=== PATIENT | male | born 1965 | race Caucasian/White ===

== ENCOUNTER 2020-04-21 23:54 | Inpatient (IN) | payer OTHER, SELFPAY ==
[2020-04-21 23:55] VITALS: BP 203/112; PULSE 73; RESP 14; TEMP 36.8; O2SAT 97; BMI 34.9
--- NOTE | 2020-04-21 23:56 | ECG_ITS ---
APPROVED REPORT Exam: Resting ECG HR:73 bpm ECG Measurements Heart Rate 73 AXES NH 146 P 45 QRSd 96 QRS 38 QT 370 T 11 QTc 407 Conclusion Normal sinus rhythm Normal ECG Electronically signed by : Kei Espinal, 04/22/2020 09:58:37
[2020-04-22] VITALS (13 sets, daily range): BP systolic 130–149; BP diastolic 73–93; PULSE 60–89; RESP 14–18; TEMP 36.6–37; O2SAT 95–99; BMI 33.9
--- NOTE | 2020-04-22 00:03 | XR_ITS ---
PROCEDURE: XR CHEST 2V CLINICAL HISTORY: cp Chest pain COMPARISON: No exams were available for comparison FINDINGS: The cardiomediastinal silhouette and pulmonary vascularity are within normal limits. The lungs are clear without infiltrates, suspicious nodules, or pleural effusions. There is straightening of the thoracic kyphosis. No acute bony findings IMPRESSION: No acute findings. Dictated by: Ricco Roberts MD 04/22/2020 07:21 Ricco Roberts MD in [facility] 04/22/2020 07:21
--- NOTE | 2020-04-22 00:05 | CT_ITS ---
PROCEDURE: CT ABDOMEN PELVIS W CON CLINICAL INDICATION: epigastric pain COMPARISON: No exams were available for comparison TECHNIQUE: IV Contrast: 75ML Isovue 370 Oral Contrast None Axial images obtained with sagittal and coronal reformats. All CT scans at the facility use one or more dose reduction, viz: automated exposure control, ma/kV adjustment per patient size (including targeted exams where dose is matched to indication, i.e. head), or iterative reconstruction technique. FINDINGS: LOWER THORAX: 6 mm noncalcified nodule left lower lobe. Six-month follow-up suggested. ABDOMEN & PELVIS: Fatty liver. Contracted gallbladder. The spleen and adrenal glands have an unremarkable appearance. There is haziness the fat in the left upper quadrant along the pancreatic tail with thickening of the left anterior pararenal fascia and left pericolic gutter. These findings are suspicious for pancreatitis. Please correlate with appropriate laboratory values. No renal or ureteral calculi. No hydronephrosis. The appendix has an unremarkable appearance. No intestinal obstruction or free air. No evidence diverticulitis. There is some minimal haziness of the peritoneal fat in the left lower quadrant which is nonspecific. There is a tiny umbilical hernia containing fat. Scattered small mesenteric lymph nodes are noted. There is a small right inguinal hernia containing fat IMPRESSION: The findings are compatible with acute pancreatitis along the tail the pancreas. Please correlate with appropriate laboratory values Minimal haziness of the fat in the left lower quadrant nonspecific but could be seen with epiploic appendagitis. Dictated by: Ricco Roberts MD 04/22/2020 08:22 Ricco Roberts MD in [facility] 04/22/2020 08:22
[2020-04-22 00:19] LABS: Basophils # 0.1 K/mm3 (0-0.2); Basophils % 0.6 % (0.1-2.0); Eosinophils # 0.7 K/mm3 (0.0-0.4); Eosinophils % 6.8 % (0.1-12.0); Hematocrit 43.3 % (42.0-52.0); Hemoglobin 13.9 g/dL (14.1-18.0); Lymphocytes # 2.4 K/mm3 (0.7-4.5); Lymphocytes % 23.8 % (10-50); Mean Corpuscular HGB Conc 32.1 g/dL (31.8-35.4); Mean Corpuscular Hemoglobin 28.5 pg (27.0-31.2); Mean Platelet Volume 8.3 fl (7.4-10.4); Monocytes # 0.6 K/mm3 (0.1-1.0); Monocytes % 6.1 % (1.7-9.3); Neutrophils # 6.4 K/mm3 (1.8-7.8); Neutrophils % 62.8 % (37.0-80.0); Platelet Count 342 K/mm3 (142-424); Red Blood Count 4.86 M/mm3 (4.60-6.20); Red Cell Distribution Width 14.7 % (11.5-17.5); White Blood Count 10.2 K/mm3 (4.8-10.8)
--- NOTE | 2020-04-22 00:20 | HMH.EDCP ---
ED Disposition Clinical Impression: Obesity (BMI 30-39.9) Acute pancreatitis Qualifiers: Pancreatitis type: unspecified pancreatitis type Acute pancreatitis complication: no infection or necrosis Qualified Code(s): K85.90 - Acute pancreatitis without necrosis or infection, unspecified Diabetes mellitus Qualifiers: Diabetes mellitus type: type 2 Diabetes mellitus jail insulin use: unspecified adjunct faculty for medical terminology insulin use status Diabetes mellitus complication status: with other specified complication Qualified Code(s): E11.69 - Type 2 diabetes mellitus with other specified complication Disposition: Admitted As Inpatient Condition on Discharge: Fair Referrals: Anand Cao MD [Primary Care Provider] - - Critical Care Critical Care Time: No Attestation: On 04/21/20, the high probability of a clinically significant, sudden or life threatening deterioration of the following system(s) required my full and direct attention, intervention and personal management. The time I documented below is in addition to time spent performing reported procedures but includes the following listed in this critical care notation. Medical Decision Making - Medical Records Medical records reviewed: Yes: I reviewed the patient's medical records. - [place] Inquiry Pt receiving controlled substance: No Vital Signs: 04/21/20 23:55 04/22/20 00:31 04/22/20 01:00 Temperature 98.3 F Temperature Source Oral Pulse Rate [Right] 73 62 66 Respiratory Rate 14 Blood Pressure [Right Arm] 203/112 H 136/75 142/74 H Blood Pressure Mean [Right Arm] 142 95 96 02 Sat by Pulse Oximetry 97 96 95 Oxygen Delivery Method Room Air Room Air 04/22/20 01:30 04/22/20 02:00 Temperature Temperature Source Pulse Rate [Right] 63 64 Respiratory Rate Blood Pressure [Right Arm] 149/93 H 149/93 H Blood Pressure Mean [Right Arm] 111 111 02 Sat by Pulse Oximetry 96 96 Oxygen Delivery Method - Lab Data Lab results reviewed: Yes: I reviewed the patient's lab results. Lab Results 04/22/20 00:07: WBC 10.2, RBC 4.86, Hgb 13.9 L, Hct 43.3, MCV 89.0, MCH 28.5, MCHC 32.1, RDW 14.7, Plt Count 342, MPV 8.3, Neut % (Auto) 62.8, Lymph % (Auto) 23.8, [place] % (Auto) 6.1, Eos % (Auto) 6.8, Baso % (Auto) 0.6, Neut # (Auto) 6.4, Lymph # (Auto) 2.4, [place] # (Auto) 0.6, Eos # (Auto) 0.7 H, Baso # (Auto) 0.1 04/22/20 00:07: Sodium 141, Potassium 4.4, Chloride 106, Carbon Dioxide 24, Anion Gap 15.4 H, BUN 23 H, Creatinine 1.10, Estimated Creat Clear 113, Estimated GFR 70, Est GFR ( Amer) 84, Glucose 224 H, Calcium 9.4, Troponin I < 0.01, Amylase 352 H* 04/22/20 00:07: Lipase 6243 H 04/22/20 00:07: Total Bilirubin 0.3, Direct Bilirubin 0.3, Conjugated Bilirubin 0.0, Indirect Bilirubin 0.0, Unconjugated Bilirubin 0.0, AST 20, ALT 21, Alkaline Phosphatase 80, Total Protein 8.1, Albumin 4.9 04/22/20 00:07: SARS-CoV-2 IgG Ab (Rapid) Negative, SARS-CoV-2 IgM Ab (Rapid) Negative Result diagrams: 04/22/20 00:07 04/22/20 00:07 Orders (Tests/Meds): ED MEDICATIONS Generic Name Dose Route Start Last Admin Trade Name Freq PRN Reason Stop Dose Admin Sodium Chloride 1,000 mls @ 999 mls/hr 04/22/20 00:15 04/22/20 00:14 Sod Chlor 0.9% 1000ml Bag IV 04/22/20 01:15 999 mls/hr .Q1H1M KESHAWN Administration Nitroglycerin 0.4 mg 04/22/20 00:09 04/22/20 00:08 Nitroglycerin 0.4mg Sl Tablet SL 05/22/20 00:08 0.4 mg Q5MINP PRN Administration Chest Pain Sodium Chloride 8 ml 04/22/20 00:01 Sodium Chloride 0.9% 10ml Vial IV 05/22/20 00:00 NEEDED PRN dilute pepcid Sodium Chloride 10 ml 04/22/20 02:07 04/22/20 01:45 Sodium Chloride 0.9% 10ml Syr (Rad Only) IV 05/22/20 02:06 10 ml NEEDED PRN Administration Maintain IV Site Discontinued Medications Generic Name Dose Route Start Last Admin Trade Name Freq PRN Reason Stop Dose Admin Famotidine 20 mg 04/22/20 00:01 04/22/20 00:13 Famotidine 20mg/2ml Vial
[2020-04-22 00:24] LABS: Chloride 106 mmol/L (98-107); Potassium 4.4 mmoL/L (3.5-5.1); Sodium 141 mmol/L (136-145)
[2020-04-22 00:27] LABS: Alanine Aminotransferase 21 U/L (12-78); Albumin Level 4.9 g/dl (3.5-5.0); Alkaline Phosphatase 80 U/L (38-126); Amylase 352 U/L (30-110); Aspartate Amino Transferase 20 U/L (17-59); Bilirubin,Direct 0.3 mg/dl (0.0-0.4); Bilirubin,Total 0.3 mg/dl (0.2-1.3); Blood Urea Nitrogen 23 mg/dl (9-20); Creatinine Clearance Estimated 113 mL/min (50-200); Estimated Glomerular Filt Rate 70 ml/min (>60); GFR (African American) 84 ML/MIN (>60); Total Protein,Serum 8.1 g/dl (6.3-8.2)
[2020-04-22 00:28] LABS: Anion Gap 15.4 mEq/L (5-15); Calcium 9.4 mg/dl (8.4-10.2); Carbon Dioxide 24 mmol/L (22.0-30.0); Glucose 224 mg/dl (74-100)
[2020-04-22 00:40] LABS: Troponin I < 0.01 ng/ml (0.00-0.034)
[2020-04-22 00:46] LABS: Lipase 6243 U/L (23-300)
[2020-04-22 01:00] LABS: Coronavirus 19 IgG Antibody Negative (Negative); Coronavirus 19 IgM Antibody Negative (Negative)
--- NOTE | 2020-04-22 01:32 | PC.NURSE ---
pt is gone to ct
--- NOTE | 2020-04-22 01:54 | PC.NURSE ---
pt returned from ct
--- NOTE | 2020-04-22 02:08 | PC.NURSE ---
Dr Dee speaking with Dr Lemos for admission
--- NOTE | 2020-04-22 03:24 | PC.NURSE ---
patient up to floor via wheelchair.
[2020-04-22 03:43] LABS: Troponin I < 0.01 ng/ml (0.00-0.034)
--- NOTE | 2020-04-22 06:25 | PC.NURSE ---
Pt has rested well since arriving to unit. Has not had any complaints of chest pain or needs for pain medication. Odered AM FSBS to be ran from blood drawn from lab personnel to save pt from having to be stuck again.
--- NOTE | 2020-04-22 06:44 | PC.NURSE ---
Lab personnel at to draw blood
[2020-04-22 07:05] LABS: Basophils % 0.5 % (0.1-2.0); Eosinophils # 0.5 K/mm3 (0.0-0.4); Eosinophils % 5.4 % (0.1-12.0); Hematocrit 38.8 % (42.0-52.0); Hemoglobin 12.6 g/dL (14.1-18.0); Lymphocytes # 1.7 K/mm3 (0.7-4.5); Mean Corpuscular HGB Conc 32.5 g/dL (31.8-35.4); Mean Corpuscular Hemoglobin 29.3 pg (27.0-31.2); Mean Corpuscular Volume 90.4 fl (80-94); Mean Platelet Volume 8.2 fl (7.4-10.4); Monocytes # 0.4 K/mm3 (0.1-1.0); Monocytes % 4.3 % (1.7-9.3); Neutrophils # 6.7 K/mm3 (1.8-7.8); Neutrophils % 71.9 % (37.0-80.0); Platelet Count 298 K/mm3 (142-424); Red Cell Distribution Width 14.6 % (11.5-17.5); White Blood Count 9.4 K/mm3 (4.8-10.8)
[2020-04-22 07:22] LABS: Anion Gap 14.5 mEq/L (5-15); Blood Urea Nitrogen 24 mg/dl (9-20); Calcium 8.8 mg/dl (8.4-10.2); Carbon Dioxide 24 mmol/L (22.0-30.0); Chloride 106 mmol/L (98-107); Chol/HDL Ratio 6.7 (1-3.5); Cholesterol 180 mg/dl (140-200); Creatinine Clearance Estimated 110 mL/min (50-200); Estimated Glomerular Filt Rate 70 ml/min (>60); GFR (African American) 84 ML/MIN (>60); Glucose 224 mg/dl (74-100); HDL Cholesterol 27 mg/dl (40-60); Lipase 1336 U/L (23-300); Magnesium 1.8 mg/dl (1.6-2.3); Potassium 4.5 mmoL/L (3.5-5.1); Sodium 140 mmol/L (136-145)
[2020-04-22 07:26] LABS: Triglycerides 444 mg/dl (30-150)
[2020-04-22 07:32] LABS: Direct LDL Cholesterol 96.79 mg/dL (100-129)
[2020-04-22 07:35] LABS: Troponin I < 0.01 ng/ml (0.00-0.034)
--- NOTE | 2020-04-22 10:18 | HMH.HP ---
*Admission Date: 04/22/20 *Chief complaint: Abdominal pain *History of present illness: Cale is a 55-year-old white male with a history of hypertension, hyperlipidemia, and type 2 diabetes mellitus who started 2 days ago with epigastric pain, gas, and loading. He went to work yesterday but after coming home last night and eating supper his epigastric pain is worse and is radiating into his chest. He tried laying down without no relief and finally presented to the emergency room. There was evaluated in the ER. His cardiac work-up was negative. He was found to have an elevated lipase and CT scan of the abdomen was consistent with pancreatitis. He has been admitted now for further evaluation and treatment. [facility] History Medical History: Reports:: Diabetes Mellitus Type 2, Gastroesophageal Reflux Disease(GERD), Hyperlipidemia, Hypertension Denies:: Cancer, Gall Bladder Disease, MRSA *Have you ever received a pneumonia vaccine?: No *Have you received a flu vaccine this season?: No Other Surgeries: Yes: No Previous Surgery Amputation: No - *Social History Smoking Status: Former smoker # Packs/Day (cigarettes): 0 #Yrs smoked (if former smoker): 15 Alcohol Intake: former Alcohol Intake Frequency:: holidays/special occasions only *Occupational Status:: other Household Members: spouse *Travel in the last 8 weeks: None Family Hx:: Cancer, Coronary Artery Disease, Heart Attack, Hyperlipidemia, Hypertension Review of Systems - Constitutional Denies anorexia, Denies body ache(s), Denies weight gain, Denies weight loss - Eyes Denies change in vision - ENT Denies abnormal hearing, Denies dry mouth, Denies difficulty swallowing - *Cardiovascular Reports chest pain, Denies shortness of breath, Denies irregular heart rhythm - *Respiratory Denies chest congestion, Denies cough - *Gastrointestinal Reports abdominal pain, Reports bloating, Reports heartburn, Denies change in bowel habits, Denies cramping - *Genitourinary Denies difficulty urinating, Denies frequent nighttime urination, Denies urinary incontinence - *Musculoskeletal Reports back pain - Integumentary/Breasts Denies hair loss, Denies yellowing of the skin, Denies unusual bruising - *Neurologic Denies headache(s), Denies seizure-like activity - Psychiatric Reports anxiety, Denies confusion - Endocrine Denies cold intolerance - Hematologic/Lymphatic Denies easy bruising - Allergic/Immunologic Denies itchy eyes, Denies seasonal runny nose Meds Home Medications Medication Instructions Recorded Confirmed Type ALPRAZolam [Xanax 1mg tab] 1 mg PO TID 04/22/20 04/22/20 History Dapagliflozin Propanediol [Farxiga] 5 mg PO DAILY 04/22/20 04/22/20 History Diclofenac Sodium [Diclofenac 75mg 75 mg PO BID 04/22/20 04/22/20 History Tab] Omeprazole [Omeprazole 40mg 40 mg PO DAILY 04/22/20 04/22/20 History Capsule] Rosuvastatin Calcium 10 mg PO HS 04/22/20 04/22/20 History gemfibroziL [Gemfibrozil] 600 mg PO BID 04/22/20 04/22/20 History lisinopriL [Lisinopril 10mg Tab] 10 mg PO DAILY 04/22/20 04/22/20 History Allergies Allergy/AdvReac Type Severity Reaction Status Date / Time No Known Allergies Allergy Verified 04/22/20 00:01 Exam Vital signs and Labs for Last 24 Hours: Temp Pulse Resp BP Pulse Ox 98.4 F 61 18 138/84 98 04/22/20 08:00 04/22/20 08:00 04/22/20 08:00 04/22/20 08:00 04/22/20 08:00 Laboratory Results - last 24 hr 04/22/20 00:07: WBC 10.2, RBC 4.86, Hgb 13.9 L, Hct 43.3, MCV 89.0, MCH 28.5, MCHC 32.1, RDW 14.7, Plt Count 342, MPV 8.3, Neut % (Auto) 62.8, Lymph % (Auto) 23.8, [place] % (Auto) 6.1, Eos % (Auto) 6.8, Baso % (Auto) 0.6, Neut # (Auto) 6.4, Lymph # (Auto) 2.4, [place] # (Auto) 0.6, Eos # (Auto) 0.7 H, Baso # (Auto) 0.1 04/22/20 00:07: Sodium 141, Potassium 4.4, Chloride 106, Carbon Dioxide 24, Anion Gap 15.4 H, BUN 23 H, Creatinine 1.10, Estimated Creat Clear 113, Estimated GFR 70, Est GFR (
[2020-04-22 11:52] LABS: POC Glucose,Bedside 139 (70-110)
--- NOTE | 2020-04-22 11:56 | HMH.PHAINT ---
MEDICATION RECONCILIATION COMPLETED ON PATIENT USING EXTERNAL FILL HISTORY FROM PHARMACY. -ERNESTO HARRY, SHREED
--- NOTE | 2020-04-22 11:57 | HMH.PHAVTE ---
[facility] [place] Pharmacy VTE Monitoring - Patient Demographics Admission date: 04/21/20 Report Date: 04/22/20 Time: 11:57 Allergies/Adverse Reactions: Patient Allergies No Known Allergies Allergy (Verified 04/22/20 00:01) Height: 1.73 m Weight: 101.151 kg Patient Problems: Current Active Problems Acute pancreatitis (Acute) Obesity (BMI 30-39.9) (Acute) Diabetes mellitus (Acute) Hypertriglyceridemia (Acute) Hypertension (Acute) GERD (gastroesophageal reflux disease) (Acute) - VTE Risk Labs: VTE Related Lab Results Hgb 12.6 g/dL (14.1-18.0) L 04/22/20 06:12 Hct 38.8 % (42.0-52.0) L 04/22/20 06:12 Plt Count 298 K/mm3 (142-424) 04/22/20 06:12 BUN 24 mg/dl (9-20) H 04/22/20 06:12 Creatinine 1.10 mg/dl (0.66-1.25) 04/22/20 06:12 Estimated Creat Clear 110 mL/min (50-200) 04/22/20 06:12 VTE Risk Level: Low Risk - Prophylaxis VTE Prophylaxis Ordered?: Yes Types of VTE Prophylaxis: TEDS Knee High Location of Applied Device: Bilateral Lower Extremeties
[2020-04-22 17:29] LABS: POC Glucose,Bedside 113 (70-110)
--- NOTE | 2020-04-22 17:50 | PC.NURSE ---
Pt has been pleasant and cooperative this shift. A&O X4. No complaints of pain. Lungs CTA. No edema noted. Skin is C/D/I. Abdomen is large, round, soft, and tender. Pt denies N/V/D. Pt is NPO status. Pt ambulates to/from the bathroom and throughout the room independently. FSBS results have been 139 and 113 this shift, neither of which have required insulin coverage per sliding scale. 18 G peripheral IV in the RT AC is patent and infusing NS @ 125 ML/HR. VSS. Call light within reach. Will continue to monitor.
[2020-04-22 21:12] LABS: POC Glucose,Bedside 108 (70-110)
[2020-04-23] VITALS (7 sets, daily range): BP systolic 124–150; BP diastolic 57–74; PULSE 65–94; RESP 17–20; TEMP 36.8–37.7; O2SAT 95–99; BMI 33.6
[2020-04-23 01:02] LABS: POC Glucose,Bedside 118 (70-110)
--- NOTE | 2020-04-23 04:48 | PC.NURSE ---
A&O x 4, VSS, able to change positions while lying in bed and ambulate to bathroom independently, skin warm, dry. IV 18g RAC c/d/i, NS 125ml/hr. Denies SOA, BL clear throughout. Pain scal 7/10 but refused pain medication. BS WNL no insulin required. Will continue to monitor.
[2020-04-23 05:24] LABS: POC Glucose,Bedside 123 (70-110)
[2020-04-23 07:47] LABS: Alanine Aminotransferase 15 U/L (12-78); Albumin Level 4.3 g/dl (3.5-5.0); Albumin/Globulin Ratio 1.4 (1.1-1.8); Alkaline Phosphatase 68 U/L (38-126); Amylase 72 U/L (30-110); Aspartate Amino Transferase 18 U/L (17-59); Bilirubin,Total 0.6 mg/dl (0.2-1.3); Blood Urea Nitrogen 13 mg/dl (9-20); Calcium 9.1 mg/dl (8.4-10.2); Carbon Dioxide 24 mmol/L (22.0-30.0); Chloride 104 mmol/L (98-107); Creatinine Clearance Estimated 134 mL/min (50-200); Estimated Glomerular Filt Rate 88 ml/min (>60); GFR (African American) 106 ML/MIN (>60); Globulin 3.1 g/dL (1.3-3.2); Glucose 134 mg/dl (74-100); Lipase 173 U/L (23-300); Sodium 139 mmol/L (136-145); Total Protein,Serum 7.4 g/dl (6.3-8.2)
--- NOTE | 2020-04-23 08:12 | P.PN_ITS ---
Internal Medicine - PN: Subj *Date: 04/23/20 *Time: 08:30 Interval history: He continues to complain of pain in the epigastric area radiating around to the left flank. No nausea or vomiting. He feels a little hungry. Exam Vital signs and Labs for Last 24 Hours: Temp Pulse Resp BP Pulse Ox 98.2 F 82 20 137/74 97 04/23/20 04:00 04/23/20 04:00 04/23/20 04:00 04/23/20 04:00 04/23/20 04:00 Laboratory Results - last 24 hr 04/22/20 11:43: POC Glucose 139 H 04/22/20 17:20: POC Glucose 113 H 04/22/20 21:03: POC Glucose 108 04/22/20 23:45: POC Glucose 118 H 04/23/20 05:14: POC Glucose 123 H 04/23/20 06:58: Sodium 139, Potassium 4.0, Chloride 104, Carbon Dioxide 24, Anion Gap 15.0, BUN 13 D, Creatinine 0.90, Estimated Creat Clear 134, Estimated GFR 88, Est GFR ( Amer) 106 D, Glucose 134 H, Calcium 9.1, Total Bilirubin 0.6, AST 18, ALT 15 D, Alkaline Phosphatase 68, Total Protein 7.4, Albumin 4.3 D, Globulin 3.1, Albumin/Globulin Ratio 1.4, Amylase 72, Lipase 173 I & O for Last 24 hours: Intake & Output 04/20/20 04/21/20 04/22/20 04/23/20 11:59 11:59 11:59 11:59 Intake Total 1000 / 1000 2800 / 2800 Balance 1000 / 1000 2800 / 2800 Weight 223 lb 222 lb Narrative: He appears mildly uncomfortable but no acute distress. Lungs are clear. Heart is regular. Abdomen is soft and slightly distended. Moderate epigastric and left upper quadrant tenderness. No rebound or guarding. Bowel sounds are diminished. Assessment and Plan (1) Acute pancreatitis Status: Acute Qualifiers: Pancreatitis type: unspecified pancreatitis type Acute pancreatitis complication: no infection or necrosis Qualified Code(s): K85.90 - Acute pancreatitis without necrosis or infection, unspecified Category: Medical Code(s): K85.90 - Acute pancreatitis without necrosis or infection, unspecified (2) Hypertriglyceridemia Status: Acute Category: Medical Code(s): E78.1 - Pure hyperglyceridemia (3) Hypertension Status: Acute Category: Medical Code(s): I10 - Essential (primary) hypertension (4) GERD (gastroesophageal reflux disease) Status: Acute Category: Medical Code(s): K21.9 - Gastro-esophageal reflux disease without esophagitis (5) Diabetes mellitus Status: Acute Qualifiers: Diabetes mellitus type: type 2 Diabetes mellitus senior living insulin use: unspecified senior living insulin use status Diabetes mellitus complication status: with other specified complication Qualified Code(s): E11.69 - Type 2 diabetes mellitus with other specified complication Category: Medical Code(s): E11.9 - Type 2 diabetes mellitus without complications - Assessment and plan all Dx Assessment and Plan for all problems:: Pancreatic enzymes are normal but still having a fair amount of pain. Advance to full liquid diet as tolerated today. Plan for gallbladder ultrasound tomorrow.
[2020-04-23 12:36] LABS: POC Glucose,Bedside 99 (70-110)
[2020-04-23 17:16] LABS: POC Glucose,Bedside 107 (70-110)
--- NOTE | 2020-04-23 18:01 | PC.NURSE ---
Pt has been pleasant and cooperative this shift. A&O X4. No complaints of pain. Lungs CTA. No edema noted. Skin is C/D/I. Abdomen is large, round, soft, and non-tender. Pt denies N/V/D. Pt has tolerated full liquids well thus far. Pt ambulates to/from the bathroom and throughout the room independently. FSBS results have been 99 and 107 this shift, neither of which have required insulin coverage per sliding scale. 18 G peripheral IV in the RT AC is patent and infusing NS @ 125 ML/HR. VSS. Call light within reach. Will continue to monitor.
[2020-04-23 21:11] LABS: POC Glucose,Bedside 119 (70-110)
[2020-04-24] VITALS: BP 144/72; PULSE 79; PULSE 80; RESP 18; TEMP 37; O2SAT 95
[2020-04-24 04:00] VITALS: BP 135/79; PULSE 80; PULSE 85; RESP 16; TEMP 37.4; O2SAT 94
[2020-04-24 05:46] VITALS: BMI 33.3
--- NOTE | 2020-04-24 05:50 | PC.NURSE ---
pt is AxOx4, lungs CTA, remains on room air with sats 94-95%, no complaints of SOA or chest pain, abdomen is large, round, soft and tender, ambulating to bathroom and in room independently
[2020-04-24 07:04] LABS: POC Glucose,Bedside 100 (70-110)
[2020-04-24 08:00] VITALS: BP 148/86; PULSE 85; PULSE 90; RESP 16; TEMP 37.1; O2SAT 97
--- NOTE | 2020-04-24 08:11 | US_ITS ---
PROCEDURE: US GALLBLADDER CLINICAL INDICATION: pancreatitis COMPARISON: No exams were available for comparison FINDINGS: Pancreas: Pancreas is not well delineated due to overlying bowel gas. Heterogeneous echogenicity is present in the pancreas with poor visualization of the pancreatic tail. Liver: Diffuse increased echogenicity of the liver with poor through transmission of sound consistent with hepatic steatosis. No focal liver lesion demonstrated. There is appropriate direction of blood flow within non dilated portal vein.. Right kidney: Unremarkable appearing. No hydronephrosis. Gallbladder: No stones are evident. There is no gallbladder wall thickening. Common duct is normal in diameter. IMPRESSION: Fatty liver. Poor visualization of the tail the pancreas with heterogeneous echogenicity. No gallstones apparent. Dictated by: Ricco Roberts MD 04/24/2020 19:02 Ricco Roberts MD in [facility] 04/24/2020 19:02
[2020-04-24 09:35] LABS: Basophils % 0.2 % (0.1-2.0); Eosinophils # 0.4 K/mm3 (0.0-0.4); Eosinophils % 4.1 % (0.1-12.0); Hematocrit 38.5 % (42.0-52.0); Hemoglobin 12.7 g/dL (14.1-18.0); Lymphocytes # 1.2 K/mm3 (0.7-4.5); Lymphocytes % 12.4 % (10-50); Mean Corpuscular HGB Conc 32.9 g/dL (31.8-35.4); Mean Corpuscular Hemoglobin 29.2 pg (27.0-31.2); Mean Corpuscular Volume 88.8 fl (80-94); Mean Platelet Volume 8.4 fl (7.4-10.4); Monocytes # 0.5 K/mm3 (0.1-1.0); Neutrophils # 7.9 K/mm3 (1.8-7.8); Neutrophils % 78.4 % (37.0-80.0); Platelet Count 314 K/mm3 (142-424); Red Blood Count 4.34 M/mm3 (4.60-6.20); Red Cell Distribution Width 14.4 % (11.5-17.5)
[2020-04-24 09:53] LABS: Anion Gap 12.9 mEq/L (5-15); Blood Urea Nitrogen 12 mg/dl (9-20); Calcium 9.3 mg/dl (8.4-10.2); Carbon Dioxide 24 mmol/L (22.0-30.0); Chloride 102 mmol/L (98-107); Creatinine Clearance Estimated 132 mL/min (50-200); Estimated Glomerular Filt Rate 88 ml/min (>60); GFR (African American) 106 ML/MIN (>60); Glucose 215 mg/dl (74-100); Lipase 67 U/L (23-300); Potassium 3.9 mmoL/L (3.5-5.1); Sodium 135 mmol/L (136-145)
[2020-04-24 12:00] VITALS: BP 142/76; PULSE 80; PULSE 81; RESP 19; TEMP 37.2; O2SAT 96
[2020-04-24 12:56] LABS: POC Glucose,Bedside 113 (70-110)
--- NOTE | 2020-04-24 13:19 | P.PN_ITS ---
Internal Medicine - PN: Subj *Date: 04/24/20 *Time: 08:15 Interval history: He rested fairly well last night. Still having some epigastric and left upper quadrant abdominal pain radiating to the left flank but overall better. He is tolerating a full liquid diet. He had a good bowel movement. Exam Vital signs and Labs for Last 24 Hours: Temp Pulse Resp BP Pulse Ox 98.8 F 80 16 148/86 H 97 04/24/20 08:00 04/24/20 12:00 04/24/20 08:00 04/24/20 08:00 04/24/20 08:00 Laboratory Results - last 24 hr 04/23/20 17:05: POC Glucose 107 04/23/20 20:43: POC Glucose 119 H 04/24/20 06:35: POC Glucose 100 04/24/20 09:25: WBC 10.0, RBC 4.34 L, Hgb 12.7 L, Hct 38.5 L, MCV 88.8, MCH 2 9.2, MCHC 32.9, RDW 14.4, Plt Count 314, MPV 8.4, Neut % (Auto) 78.4, Lymph % (Auto) 12.4, [place] % (Auto) 5.0, Eos % (Auto) 4.1, Baso % (Auto) 0.2, Neut # (Auto) 7.9 H, Lymph # (Auto) 1.2, [place] # (Auto) 0.5, Eos # (Auto) 0.4, Baso # (Auto) 0.0 04/24/20 09:25: Sodium 135 L, Potassium 3.9, Chloride 102, Carbon Dioxide 24, Anion Gap 12.9, BUN 12, Creatinine 0.90, Estimated Creat Clear 132, Estimated GFR 88, Est GFR ( Amer) 106, Glucose 215 H, Calcium 9.3, Lipase 67 04/24/20 11:36: POC Glucose 113 H I & O for Last 24 hours: Intake & Output 04/22/20 04/23/20 04/24/20 04/25/20 11:59 11:59 11:59 11:59 Intake Total 1000 / 1000 2800 / 2800 3820 / 3820 Balance 1000 / 1000 2800 / 2800 3820 / 3820 Weight 223 lb 222 lb 220 lb Narrative: He appears in no distress. Lungs are clear. Heart is regular. Abdomen is soft and nondistended. Mild to moderate epigastric and left upper quadrant tenderness. No rebound or guarding. Bowel sounds are present.. Assessment and Plan (1) Acute pancreatitis Status: Acute Qualifiers: Pancreatitis type: unspecified pancreatitis type Acute pancreatitis compli cation: no infection or necrosis Qualified Code(s): K85.90 - Acute pancreatitis without necrosis or infection, unspecified Category: Medical Code(s): K85.90 - Acute pancreatitis without necrosis or infection, unspecified (2) Hypertriglyceridemia Status: Acute Category: Medical Code(s): E78.1 - Pure hyperglyceridemia (3) Hypertension Status: Acute Category: Medical Code(s): I10 - Essential (primary) hypertension (4) GERD (gastroesophageal reflux disease) Status: Acute Category: Medical Code(s): K21.9 - Gastro-esophageal reflux disease without esophagitis (5) Diabetes mellitus Status: Acute Qualifiers: Diabetes mellitus type: type 2 Diabetes mellitus distribution center associate insulin use: unspecified distribution center associate insulin use status Diabetes mellitus complication status: with other specified complication Qualified Code(s): E11.69 - Type 2 diabetes mellitus with other specified complication Category: Medical Code(s): E11.9 - Type 2 diabetes mellitus without complications - Assessment and plan all Dx Assessment and Plan for all problems:: A.m. labs are pending. He is scheduled for gallbladder ultrasound this morning. Advance diet after ultrasound completed
[2020-04-24 14:42] VITALS: BMI 33.4
[2020-04-24 16:00] VITALS: BP 147/55; PULSE 85; RESP 22; TEMP 38.1; O2SAT 97
[2020-04-24 22:03] LABS: POC Glucose,Bedside 131 (70-110)
--- NOTE | 2020-04-25 15:02 | HMH.DCSUM ---
General - General Admission date:: 04/22/20 <Anand Cao - 05/16/20 12:42> 04/22/20 <NikiaBerta - 04/25/20 15:05> Discharge date: 04/24/20 <Berta Montejo - 04/25/20 15:05> HPI HPI: Cale is a 55-year-old white male with a history of hypertension, hyperlipidemia, and type 2 diabetes mellitus who started 2 days ago with epigastric pain, gas, and loading. He went to work yesterday but after coming home last night and eating supper his epigastric pain is worse and is radiating into his chest. He tried laying down without no relief and finally presented to the emergency room. There was evaluated in the ER. His cardiac work-up was negative. He was found to have an elevated lipase and CT scan of the abdomen was consistent with pancreatitis. He has been admitted now for further evaluation and treatment. <LucBerta dick - 04/25/20 15:05> Hospital Course Hospital Course: The patient was admitted with a diagnosis of acute pancreatitis likely on the basis of diabetes and hypertriglyceridemia. On his CT scan, his gallbladder was contracted with no evidence of stones. His pain did improve as did his lipase. He was kept n.p.o. with IV fluid hydration and was started on sliding scale insulin. A gallbladder ultrasound was ordered and showed fatty liver but no gallstones. His pancreatic enzymes normalized, but he continued to have some pain. His diet was advanced. He was tolerating his diet and was having good bowel movements. He tolerated a low-fat diet with no nausea or increased pain and was anxious to go home. He was instructed on a strict low-fat diet and will monitor his blood sugar at home and resume his diabetic medications when his sugars start increasing. He will follow-up in the office [facility] in 1 week. <NikiaBooa - 04/25/20 15:05> Objective Vital signs: Temp Pulse Resp BP Pulse Ox 100.5 F H 85 22 147/55 H 97 04/24/20 16:00 04/24/20 16:00 04/24/20 16:00 04/24/20 16:00 04/24/20 16:00 <Anand Cao - 05/16/20 12:42> Temp Pulse Resp BP Pulse Ox 100.5 F H 85 22 147/55 H 97 04/24/20 16:00 04/24/20 16:00 04/24/20 16:00 04/24/20 16:00 04/24/20 16:00 <Berta Montejo 04/25/20 15:05> Narrative: He appears in no distress. Lungs are clear. Heart is regular. Abdomen is soft and nondistended. Mild to moderate epigastric and left upper quadrant tenderness. No rebound or guarding. Bowel sounds are present.. <Berta Montejo 04/25/20 15:05> Results Labs on day of discharge: Labs from last 24 hours 04/24/20 16:42 POC Glucose 131 H <Berta Mnotejo 04/25/20 15:05> DS: Diagnosis - Discharge Diagnosis (1) Acute pancreatitis Status: Acute (2) Hypertriglyceridemia Status: Acute (3) Hypertension Status: Acute (4) GERD (gastroesophageal reflux disease) Status: Acute (5) Diabetes mellitus Status: Acute <Berta Montejo 04/25/20 15:02> (1) Acute pancreatitis Status: Acute (2) Hypertriglyceridemia Status: Acute (3) Hypertension Status: Acute (4) GERD (gastroesophageal reflux disease) Status: Acute (5) Diabetes mellitus Status: Acute <Anand Cao - 05/16/20 12:42> Discharge Plan - Patient Discharge Instructions ACTIVITY: Continue current activity <Berta Montejo 04/25/20 15:05> DIET: diabetic diet, low fat, low cholesterol <Berta Montejo 04/25/20 15:05> Additional Instructions: Nursing Diagnosis: Knowledge Deficit Disease/Condition Goal(s): Education of disease process Instruction(s): Follow provider plan/instructions (See attached discharge education) Follow/up with primary care provider as instructed in discharge packet <Aannd Cao - 05/16/20 12:42> Patient Instructions: Acute Pancreatitis, Carbohydrate-Counting Diet, Fat-Restricted Diet <Anand Cao - 05/16/20 12:42> F
== END 2020-04-24 18:39 | disposition home or self-care (01) | DRG 440 ==
LOC: ER 04-22 02:50 → 2ND 04-22 03:04
PROVIDERS: Admitting Provider Family Medicine; Emergency Provider Emergency Medicine; PCP Family Medicine; Visit Provider Family Medicine
DX: K85.90 Acute pancreatitis without necrosis or infection, unspecified (principal); E11.9 Type 2 diabetes mellitus without complications; I10 Essential (primary) hypertension; Z87.891 Personal history of nicotine dependence; E78.1 Pure hyperglyceridemia; Z79.84 Long term (current) use of oral hypoglycemic drugs; Z79.899 Other long term (current) drug therapy
CPT/HCPCS: 36415; 71046; 74177; 76705; 80048; 80053; 80061; 80076; 82150; 82962; 83690; 83735; 84484; 85025; 86328; 93005; 96375; 99284; J2405; Q9967

== ENCOUNTER → 2021-03-14 07:44 | Outpatient (CLI) | payer OTHER, SELFPAY | PROVIDERS: PCP Family Medicine; Visit Provider Family Medicine | DX: R06.09 Other forms of dyspnea (principal) | CPT/HCPCS: 93017 ==

== ENCOUNTER → 2021-03-14 07:44 | Outpatient (CLI) | payer SELFPAY ==
--- NOTE | 2021-03-14 | CA_ITS ---
APPROVED REPORT Exam: Exercise Treadmill Technologist: Roma Brooks Ht: 5 ft 8 in Wt: 225 lbs BSA: 2.15 m2 HR: 65 bpm BP: 128/76 mmHg Indications: Dyspnea on Exertion, Medical History Medications: Lisinopril,,,,, Metformin,,,,, Prilosec,,,,, Farxiga,,,,, CHOLESTEROL MED,,,,, Diclofenac,,,,, Gemfibrozil,,,,, Stress Test Details Test: Cale HR Resting HR: 71 bpm Max Heart Rate (APMHR): 165.234189 bpm Max HR Achieved: 149 bpm Target HR (85% APMHR): 140.677935 bpm % of APMHR: 90.30 Recovery HR: 83 bpm BP Resting BP: 128.0/76.0 mmHg Max BP: 240.0/80.0 mmHg Recovery BP: 144.0/77.0 mmHg ECG Resting ECG: Normal sinus rhythm Clinical Exercise duration: 06:50 min Highest Stage Achieved: Exercise capacity: 10.1 METs Stress ECG Conclusion Patient exercised 6:50 on Cale Protocol. Test stopped due to shortness of air, leg fatigue, blood pressure. Symptoms: Shortness of air, leg fatigue. No chest pain. Arrhythmias/Ectopy: Rare PAC and PVC ST-T Changes: 0.5mm horizontal ST depression inferiorly andlaterally in recovery. during exercise and allowing for motion artifact, the ST response appear within normal limits. Conclusion: Hypertensive response to exercise. Within normal stress EKGs and no chest pain. GXT only (no imaging). Test Summary REST . . . . . . . Sitting REST . . . . . . . Standing REST 03:09 0.0 0.0 71 . 128/ 76 . . Stage 1 01:00 10.0 1.7 95 . . . . Stage 1 02:00 10.0 1.7 106 . . . . Stage 1 03:00 10.0 1.7 111 . 194/ 78 . . Stage 2 01:00 12.0 2.5 121 . . . . Stage 2 02:00 12.0 2.5 128 . . . . Stage 2 03:00 12.0 2.5 137 . 232/ 80 . . Stage 3 00:50 14.0 3.4 148 . . . Stop exercise at 06:50 RECOVERY 01:00 0.0 0.0 128 . 240/ 80 . . RECOVERY 02:00 0.0 0.0 110 . 240/ 80 . . RECOVERY 03:00 0.0 0.0 93 . 187/ 73 . . RECOVERY 04:00 0.0 0.0 87 . 187/ 73 . . RECOVERY 05:00 0.0 0.0 82 . 144/ 77 . . RECOVERY 05:19 0.0 0.0 85 . 144/ 77 . . Electronically signed by : Bishop Prater MD 03/14/2021 21:11:47
--- NOTE | 2021-03-14 07:51 | CT_ITS ---
PROCEDURE: CT HEART W CALCIUM SCORE CLINICAL HISTORY: SCREENING COMPARISON: No exams were available for comparison TECHNIQUE: Axial images obtained with sagittal and coronal reformats. All CT scans at the facility use one or more dose reduction, viz: automated exposure control, ma/kV adjustment per patient size (including targeted exams where dose is matched to indication, i.e. head), or iterative reconstruction technique. FINDINGS: Coronary artery calcium score is 3 Minimal calcific plaque burden with low cardiovascular disease risk IMPRESSION: Minimal calcific plaque burden with low cardiovascular disease risk Dictated by: Ricco Roberts MD 03/14/2021 16:35 Ricco Roberts MD in [place] 03/14/2021 16:35
== END ==
PROVIDERS: PCP Family Medicine; Visit Provider Family Medicine
DX: Z13.6 Encounter for screening for cardiovascular disorders (principal)
CPT/HCPCS: 75571; 93017

== ENCOUNTER → 2021-05-02 08:30 | Outpatient (CLI) | payer OTHER, SELFPAY | PROVIDERS: PCP Family Medicine; Visit Provider Surgery | DX: Z01.812 Encounter for preprocedural laboratory examination (principal); U07.1 COVID-19 | CPT/HCPCS: C9803; U0003; U0005 ==

== ENCOUNTER 2021-06-08 10:30 | Day surgery (SDC) | payer OTHER, SELFPAY ==
[2021-05-01 13:56] VITALS: BMI 34.2
[2021-06-05 09:58] VITALS: BMI 33.1
--- NOTE | 2021-06-08 11:19 | P.PN_ITS ---
[facility] Anesthesia Checklist - Patient Identification Patient Identification: Arm Band - Structural Data Admitted From: Home Planned Operative Procedure/s: Colonoscopy Consent for Planned Operative Procedure(s) Verified: Yes - NPO Status Verified Time NPO: 07:30 (Prep) - Airway Assessment C-Spine Mobility Assessed: Yes TMJ Mobility Assessed: Yes Dentition: Good Dentition - Neurological Assessment Level of Consciousness: Awake Hx Seizures: No Numbness or tingling in extremities: No - Anesthesia Plan Anesthesia Risk discussed: Yes Anesthesia Plan: Verified ASA Class: II Anesthesia Type: MAC [facility] History I have reviewed the patient's past medical history: Yes Medical History: Reports:: Diabetes Mellitus Type 2, Gastroesophageal Reflux Disease(GERD), Hyperlipidemia, Hypertension Denies:: Cancer, Diabetes Mellitus Type 1, Gall Bladder Disease, Internal Pacemaker, MRSA *Have you ever received a pneumonia vaccine?: No *Have you received a flu vaccine this season?: Yes Anesthesia experience/problems:: None Other Surgeries: Yes: No Previous Surgery. No: Pacemaker Amputation: No Fractures: No - *Social History Last grade of school completed: High school graduate Smoking Status: Former smoker # Packs/Day (cigarettes): 0 #Yrs smoked (if former smoker): 15 Alcohol Intake: never Alcohol Intake Frequency:: holidays/special occasions only Substance Use Type: denies use *Occupational Status:: employed Housing: house Household Members: spouse *Travel in the last 8 weeks: None Family Hx:: Unable to obtain
[2021-06-08 11:26] VITALS: BP 162/98; PULSE 81; RESP 18; TEMP 36.5; O2SAT 97
[2021-06-08 11:45] VITALS: O2SAT 97
--- NOTE | 2021-06-08 12:20 | HMH.SCOPE ---
- Procedure: Date: 06/08/21 Patient Date of :: 1965 Procedure Performed:: Total colonoscopy with polypectomy by snare Indications:: Patient is a 56-year-old male sent for initial screening colonoscopy Performing Provider:: Ari Solitario MD Referring Provider:: Cordell Cao MD Sedation:: MAC sedation Procedure:: Patient was taken to endoscopy procedure room. He was positioned in lateral decubitus position. Adequate intravenous sedation was achieved with anesthesia titration of propofol. Variable stiffness Olympus colonoscope was inserted via the anus. Is advanced to the cecum. He did have some floppiness and redundancy of the sigmoid colon. Colonic preparation initially was fair as there was some particulate liquid stool throughout the colon. Thorough irrigation and suctioning was performed to allow for adequate visualization. Ileocecal valve and appendiceal orifice were clearly identified. Colonoscope was slowly withdrawn through the colon. In the proximal sigmoid colon there is a small polyp removed with cold cutting snare. Within the rectum retroflexion was performed which revealed no evidence of any pathologic internal hemorrhoids. Colonoscope was withdrawn. Findings:: Initially fair colonic preparation, adequate visualization with thorough irrigation and suctioning Small proximal sigmoid polyp removed with cold cutting snare Recommendations:: Likely repeat colonoscopy 5 years pending pathology Complications:: None immediately apparent Estimated blood obtained (mL): 1
[2021-06-08 12:22] VITALS: BP 137/86; PULSE 80; RESP 16; TEMP 36.4; O2SAT 94
[2021-06-08 12:32] VITALS: BP 130/89; PULSE 74; RESP 18; TEMP 36.4; O2SAT 93
[2021-06-08 12:42] VITALS: BP 140/96; PULSE 75; RESP 16; TEMP 36.4; O2SAT 94
[2021-06-08 12:55] VITALS: BP 140/96; PULSE 75; RESP 18; TEMP 36.4; O2SAT 94
[2021-12-27 10:57] LABS: POC Glucose,Bedside 119 (70-110)
== END 2021-06-08 12:55 | disposition home or self-care (01) ==
LOC: OUTP 10:32
PROVIDERS: PCP Family Medicine; Visit Provider Surgery
PROC: 0DJD8ZZ Inspection of Lower Intestinal Tract, Via Natural or Artificial Opening Endoscopic (ICD-10-PCS; CPT 45385; principal; 2021-06-08 12:30)
DX: Z12.11 Encounter for screening for malignant neoplasm of colon (principal); K63.5 Polyp of colon; E11.9 Type 2 diabetes mellitus without complications; K21.9 Gastro-esophageal reflux disease without esophagitis; E78.5 Hyperlipidemia, unspecified; I10 Essential (primary) hypertension; Z79.84 Long term (current) use of oral hypoglycemic drugs; Z79.899 Other long term (current) drug therapy
CPT/HCPCS: 45385; 82962

== ENCOUNTER 2024-02-10 03:11 | Emergency (ER) | payer OTHER, SELFPAY ==
[2024-02-10 03:13] VITALS: BP 165/104; PULSE 72; RESP 20; TEMP 36.7; O2SAT 95; BMI 31.1
--- NOTE | 2024-02-10 03:22 | HMH.EDGENADL ---
Discharge Plan Disposition Patient Disposition: Home, Self-Care Prescriptions Prescriptions: No Action metformin 500 MG tablet 500 mg PO BID peg 3350-electrolytes 4,000 ML recon soln 240 ml PO Q10M Rx Instructions: until fecal effluent is clear alprazolam 1 MG tablet 1 mg PO TID PRN (Reason: Anxiety) omeprazole 40 MG capsule,delayed release(DR/EC) 40 mg PO DAILY gemfibrozil 600 MG tablet 600 mg PO BID lisinopril 10 MG tablet 10 mg PO DAILY diclofenac sodium 75 MG tablet,delayed release (DR/EC) 75 mg PO BID rosuvastatin 10 MG tablet 10 mg PO HS dapagliflozin propanediol 5 MG tablet 5 mg PO DAILY Patient Comments: TAKE ONE TABLET BY MOUTH EVERY DAY Referrals Follow up/Referrals: Anand Cao MD [Primary Care Provider] - See instructions Activity Restrictions/Add. Instructions Additional Instructions/Restrictions: Recommend discontinuing any NSAIDs such as your diclofenac as this could be worsening your pain. Continue take the omeprazole and consider taking Pepcid or other oyrl-xdo-vsxeyft antacids. Please follow-up with your primary care provider. Please return to the emergency department if you develop any new or worsening symptoms or become concerned for your health. Clinical Impressions Clinical Impression: Epigastric abdominal pain Instructions Patient Instructions: DI for Acute Abdominal Pain Print Language Print Language: Vietnamese Discharge ED Provider: Derek Villeda Adult HPI General Chief complaint: Abdominal Pain Stated complaint: abd pain, history of pancreatitis Time Seen by Provider: 02/10/24 03:15 History of Present Illness HPI narrative: 58-year-old male with history of hypertension, lkl-tyikvld-nlrwecveg diabetes, prior episode of pancreatitis presents for recurrent abdominal pain. He reports it feels like when he had pancreatitis before. He reports epigastric pain for the last 3 days or so, worse with lying down. He denies nausea or vomiting. Reports no prior abdominal surgery. Denies any alcohol ingestion Related Data Home Medications ?Medication ?Instructions ?Recorded ?Confirmed alprazolam 1 mg tablet 1 mg PO TID PRN Anxiety 04/22/20 06/28/21 dapagliflozin propanediol 5 mg 5 mg PO DAILY Diabetes 04/22/20 06/28/21 tablet diclofenac sodium 75 mg 75 mg PO BID Pain 04/22/20 06/28/21 tablet,delayed release gemfibrozil 600 mg tablet 600 mg PO BID Cholesterol 04/22/20 06/28/21 lisinopril 10 mg tablet 10 mg PO DAILY Hypertension 04/22/20 06/28/21 omeprazole 40 mg capsule,delayed 40 mg PO DAILY GERD 04/22/20 06/28/21 release rosuvastatin 10 mg tablet 10 mg PO HS Cholesterol 04/22/20 06/28/21 metformin 500 mg tablet 500 mg PO BID Diabetes 06/05/21 06/28/21 peg 3350-electrolytes 236 240 ml PO Q10M prep 06/08/21 06/28/21 gram-22.74 gram-6.74 gram-5.86 gram solution Allergies Allergy/AdvReac Type Severity Reaction Status Date / Time No Known Allergies Allergy Verified 06/28/21 10:40 [facility] Disclaimer: The information contained in this section may have been updated after the patient was seen, as this information can be updated by other users. Social History Smoking Status: Never smoker alcohol intake: never substance use type: denies use current occupational status: employed Travel in the last 8 weeks: None household members: spouse housing: house current occupation: [employer] caffeine: Yes Other Medical History Have you received the Flu Vaccine for this season: Yes Have you received the Pneumonia Vaccine: No ROS Obtained: Yes All systems reviewed & no additional complaints except as documented Physical Exam General General appearance: alert and in no apparent distress Head Head exam: atraumatic and normocephalic Eye Eye exam: Present normal appearance, PERRL and EOMI ENT ENT exam: Present normal oropharynx and normal external ear exam Neck Neck exam: Present normal inspection and full ROM Chest Chest inspection: Present normal inspection and symmetric chest wall rise; Absent tenderness Respiratory Respiratory exam: Present normal lung sounds bilaterally; Absent respiratory distress Cardiovascular Cardiovascular exam: Present regular rate and normal rhythm Abdominal Exam Abdominal exam: Present soft and tenderness (Epigastric); Absent distention or guarding Extremities Exam Extremities exam: Present normal inspection; Absent edema or joint swelling Back Exam Back exam: Present normal inspection; Absent tenderness Neurological Exam Neurological exam: Present alert and oriented X3; Absent motor sensory deficit Psychiatric Psychiatric exam: Present normal affect and normal mood Skin Skin exam: Present warm, dry and normal color Lymphatic Lymphatic Findings: no adenopathy Medical Decision Making Medical Records Medical records reviewed: Yes I reviewed the patient's medical records. Screening: Per USPSTF and CDC recommendations, given the prevalence of disease in our region, it is our hospital?s policy to screen for HIV and viral Hepatitis for all patients aged 18 and over and those with ongoing risk factors. Cu[place]htemoc Inquiry Pt receiving controlled substance: No Cuauhtemoc was queried for this patient: No Vital Signs: 02/10/24 03:13 Temperature 98.1 F Temperature Source Oral Pulse Rate [Right] 72 Respiratory Rate 20 Blood Pressure [Right Radial Artery] 165/104 H Blood Pressure Mean [Right Radial Artery] 124 02 Sat by Pulse Oximetry 95 Oxygen Delivery Method Room Air Lab Data Lab results reviewed: Yes I reviewed the patient's lab results. Lab Results 02/10/24 03:26: WBC 6.1, RBC 5.95, Hgb 16.7, Hct 50.2, MCV 84.3, MCH 28.1, MCHC 33.3, RDW 16.1, Plt Count 252, MPV 8.5, Neut % (Auto) 60.8, Lymph % (Auto) 26.4, [place] % (Auto) 7.8, Eos % (Auto) 3.9, Baso % (Auto) 1.2, Neut # (Auto) 3.7, Lymph # (Auto) 1.6, [place] # (Auto) 0.5, Eos # (Auto) 0.2, Baso # (Auto) 0.1, Sodium 140, Potassium 4.0, Chloride 102, Carbon Dioxide 25, Anion Gap 17.0 H, BUN 20, Creatinine 0.90, Estimated Creat Clear 119, Estimated GFR 87, Est GFR ( Amer) 105, Glucose 148 H, Calcium 9.2, Total Bilirubin 0.7, AST 26, ALT 29, Alkaline Phosphatase 67, Troponin I < 0.01, Total Protein 7.8, Albumin 4.8, Globulin 3.0, Albumin/Globulin Ratio 1.6, Lipase 297, HIV 1&2 Antibody Rapid Nonreactive 02/10/24 03:26 02/10/24 03:26 Orders (Tests/Meds): ED MEDICATIONS Generic Name Dose Route Start Last Admin Trade Name Freq PRN Reason Stop Dose Admin Sodium Chloride 10 ml 02/10/24 04:14 02/10/24 04:15 Sodium Chloride 0.9% 10ml Syr (Rad Only) IV 03/11/24 04:13 10 ml NEEDED PRN Administration Maintain IV Site Discontinued Medications Generic Name Dose Route Start Last Admin Trade Name Kellen PRN Reason Stop Dose Admin Iopamidol 75 ml 02/10/24 04:14 02/10/24 04:15 Iopamidol-370 (76%);100ml Bottle IV 02/10/24 04:15 75 ml ONCE ONE Administration ORDERS Category Date Time Status CT abdomen pelvis w con Stat Cat Scan 02/10/24 03:34 Completed CXR --portable [XR chest portable] Stat Exams 02/10/24 03:34 Completed CBC w/Auto Diff [Complete Blood Count Auto Diff] Stat Lab 02/10/24 03:26 Completed CMP [Comprehensive Metabolic Panel] Stat Lab 02/10/24 03:26 Completed HIV (1&2) Antibody Rapid Stat Lab 02/10/24 03:26 Completed Hep C Ab with Reflex to RNA Stat Lab 02/10/24 03:26 Received Lipase Stat Lab 02/10/24 03:26 Completed Troponin I Q3H Lab 02/10/24 03:26 Completed Troponin I Q3H Lab 02/10/24 06:45 Ordered ECG Data Tracing #1: I reviewed this ECG and interpreted as documented below: Sinus rhythm, no significant ST elevation, T wave inversion in lead III. ECG initial impression date: 02/10/24 ECG initial impression time: 04:00 HEART Score History (anamnesis): Slightly suspicious ECG: Non-specific disturbance Age: 45-65 years Risk factors: 3 or more risk factors Troponin: </= normal limit HEART Score: 4 Medical Decision Narrative: 58-year-old male with history of hypertension hyperlipidemia ajv-[id number]-[id number] diabetes obesity and 1 prior episode of idiopathic pancreatitis presents for 3 days of epigastric pain. History was obtained via interactive discussion with patient, chart review. On arrival, patient is [afebrile, hemodynamically stable, satting appropriately, alert, oriented x4, GCS 15], moving all extremities spontaneously. Full physical exam performed and significant for mild epigastric tenderness. Differential includes but is not limited to appendicitis, cholecystitis, peptic ulcer disease, gastroenteritis, ACS,. Patient declined medication interventions.. Workup initiated including CBC CMP lipase troponin EKG chest x-ray CT abdomen pelvis IV contrast. On re-evaluation, patient [remains afebrile, HD stable.] Laboratory workup independently interpreted by me and significant for normal lipase, normal white count, normal LFTs, initial troponin undetectably low. Given duration and location of symptoms, single troponin will suffice. Imaging independently interpreted by me and significant for normal gallbladder without evidence of cholecystitis, normal pancreas. Does show an incidentally noted right inguinal hernia which I informed the patient about. See radiology read for full review of final results. Given patient history, exam and workup, patient's presentation most likely represents GERD/peptic ulcer disease. No evidence of pancreatic, hepatobiliary or cardiac source of pain at this time. These fines were communicated patient he was given instructions regarding symptomatic care and return precautions and follow-up. Procedures Risk/Benefits of Procedure(s) Were Explained: Yes Critical Care Critical Care Time Critical Care Time: No
--- NOTE | 2024-02-10 03:34 | CT_ITS ---
PROCEDURE INFORMATION: Exam: CT Abdomen And Pelvis With Contrast Exam date and time: 02/10/2024 3:58 AM Age: 58 years old Clinical indication: Abdominal pain; Epigastric; Additional info: Epigastric abd pain, HX idiopathic panc TECHNIQUE: Imaging protocol: Computed tomography of the abdomen and pelvis with contrast. Radiation optimization: All CT scans at this facility use at least one of these dose optimization techniques: automated exposure control; mA and/or kV adjustment per patient size (includes targeted exams where dose is matched to clinical indication); or iterative reconstruction. Contrast material: ISOVUE; Contrast volume: 75 ml; Contrast route: IV; COMPARISON: CT ABDOMEN PELVIS W CON 04/22/2020 1:39 AM FINDINGS: Liver: The liver is low in density. Gallbladder and biliary ducts: Normal. No calcified stones. No ductal dilation. Pancreas: Normal. No ductal dilation. Spleen: Normal. No splenomegaly. Adrenal glands: Normal. No mass. Kidneys and ureters: Normal. No hydronephrosis. Stomach and bowel: Unremarkable. No obstruction. No mucosal thickening. Appendix: No evidence of appendicitis. Intraperitoneal space: Unremarkable. No free air. No significant fluid collection. Vasculature: Unremarkable. No abdominal aortic aneurysm. Lymph nodes: Unremarkable. No enlarged lymph nodes. Urinary bladder: Unremarkable as visualized. Reproductive: Unremarkable as visualized. Bones/joints: Unremarkable. No acute fracture. Soft tissues: Fat containing right inguinal hernia. IMPRESSION: 1. No acute process identified. 2. Fat containing right inguinal hernia. 3. Diffuse hepatic steatosis.
--- NOTE | 2024-02-10 03:34 | XR_ITS ---
PROCEDURE INFORMATION: Exam: XR Chest Exam date and time: 02/10/2024 4:10 AM Age: 58 years old Clinical indication: Pain; Additional info: Cp TECHNIQUE: Imaging protocol: Radiologic exam of the chest. Views: 1 view. COMPARISON: CR XR CHEST 2V 04/22/2020 12:09 AM FINDINGS: Lungs: Unremarkable. No consolidation. Pleural spaces: Unremarkable. No pleural effusion. No pneumothorax. Heart/Mediastinum: Unremarkable. No cardiomegaly. Bones/joints: Unremarkable. IMPRESSION: No acute findings.
[2024-02-10 03:41] LABS: Basophils # 0.1 K/mm3 (0-0.2); Basophils % 1.2 % (0.1-2.0); Eosinophils # 0.2 K/mm3 (0.0-0.4); Eosinophils % 3.9 % (0.1-12.0); Hematocrit 50.2 % (42.0-52.0); Hemoglobin 16.7 g/dL (14.1-18.0); Lymphocytes # 1.6 K/mm3 (0.7-4.5); Lymphocytes % 26.4 % (10-50); Mean Corpuscular HGB Conc 33.3 g/dL (31.8-35.4); Mean Corpuscular Hemoglobin 28.1 pg (27.0-31.2); Mean Corpuscular Volume 84.3 fl (80-94); Mean Platelet Volume 8.5 fl (7.4-10.4); Monocytes # 0.5 K/mm3 (0.1-1.0); Monocytes % 7.8 % (1.7-9.3); Neutrophils # 3.7 K/mm3 (1.8-7.8); Neutrophils % 60.8 % (37.0-80.0); Platelet Count 252 K/mm3 (142-424); Red Blood Count 5.95 M/mm3 (4.60-6.20); Red Cell Distribution Width 16.1 % (11.5-17.5); White Blood Count 6.1 K/mm3 (4.8-10.8)
[2024-02-10 03:45] LABS: Alanine Aminotransferase 29 U/L (12-78); Albumin Level 4.8 g/dl (3.5-5.0); Albumin/Globulin Ratio 1.6 (1.1-1.8); Alkaline Phosphatase 67 U/L (38-126); Aspartate Amino Transferase 26 U/L (17-59); Bilirubin,Total 0.7 mg/dl (0.2-1.3); Blood Urea Nitrogen 20 mg/dl (9-20); Calcium 9.2 mg/dl (8.4-10.2); Carbon Dioxide 25 mmol/L (22.0-30.0); Chloride 102 mmol/L (98-107); Creatinine Clearance Estimated 119 mL/min (50-200); Estimated Glomerular Filt Rate 87 ml/min (>60); GFR (African American) 105 ML/MIN (>60); Glucose 148 mg/dl (74-100); Lipase 297 U/L (23-300); Sodium 140 mmol/L (136-145); Total Protein,Serum 7.8 g/dl (6.3-8.2)
--- NOTE | 2024-02-10 03:58 | ECG_ITS ---
APPROVED REPORT Exam: Resting ECG HR:68 bpm ECG Measurements Heart Rate 68 AXES IA 182 P -1 QRSd 101 QRS 78 QT 375 T -11 QTc 392 Conclusion SINUS RHYTHM ABNORMAL QRS-T ANGLE [QRS-T AXIS DIFFERENCE > 60] ABNORMAL ECG UNCONFIRMED REPORT Electronically signed by : LATRICIA PÉREZ, 02/13/2024 06:50:08
[2024-02-10 04:06] LABS: Troponin I < 0.01 ng/ml (0.00-0.034)
[2024-02-10] MEDS: SODIUM CHLORIDE 0.9% 10ML SYR (RAD ONLY) 10 ML IV (04:15)
[2024-02-10] MEDS: IOPAMIDOL-370 (76%);100ML BOTTLE 75 ML IV (04:15)
[2024-02-10 04:24] LABS: HIV (1&2) Antibody Rapid NONREACTIVE (NONREACTIVE)
[2024-02-10 04:36] VITALS: BP 155/92; PULSE 69; RESP 18; TEMP 36.8; O2SAT 96
[2024-02-11 09:47] LABS: HCV Ab Non Reactive (Non Reactive)
== END 2024-02-10 04:42 | disposition home or self-care (01) ==
PROVIDERS: Emergency Provider Emergency Medicine; PCP Family Medicine
DX: R10.13 Epigastric pain (principal)
CPT/HCPCS: 71045; 74177; 80053; 83690; 84484; 85025; 86803; 87389; 93005; 99285; Q9967